=== PATIENT | female | born 1990 | race Caucasian/White ===

== ENCOUNTER 2024-01-27 20:04 | Emergency (ER) | payer BC, SELFPAY ==
[2024-01-27 20:04] VITALS: BP 130/89; PULSE 115; RESP 18; O2SAT 94
[2024-01-27 20:05] VITALS: BP 132/93; PULSE 126; RESP 22; TEMP 38.4; O2SAT 97; BMI 32.1
[2024-01-27] MEDS: Ibuprofen 600 MG Tablet PO (20:36)
[2024-01-27] MEDS: Acetaminophen 500 MG Tablet 1000 MG PO (20:36)
--- NOTE | 2024-01-27 20:39 | EX.ED.DYSGE1 ---
HPI <CARLO Ruiz - Last Filed: 01/27/24 22:11> History of Present Illness Chief Complaint: Shortness of Breath Narrative Narrative: Patient is a 33-year-old female with no significant medical history presents to the emergency department for cough, shortness of breath, fever chills and headache. Patient did have a sore throat that started 6 days ago, patient then went to the urgent care within 24 hours. Patient was placed on amoxicillin, however is not getting any improvement. Today, the patient had a severe headache, chest pain, shortness of breath as well as a cough. Pay states she did take some DayQuil however it is not helping. Patient is here for evaluation. [facility] <CARLO Ruiz - Last Filed: 01/27/24 22:11> [facility] Medical History (Updated 01/27/24 @ 22:10 by CARLO Ruiz) No active medical problems Home Medications ?Medication ?Instructions ?Recorded ?Last Taken ?Type doxycycline hyclate 100 mg capsule 100 mg PO BID #14 caps 01/27/24 Unknown Rx Allergy/AdvReac Type Severity Reaction Status Date / Time No Known Allergies Allergy Verified 01/27/24 20:07 Family History Other Cancer Surgical History No significant past surgical history Social History Smoking Status: Never smoker alcohol intake: never substance use type: does not use ROS <CARLO Ruiz - Last Filed: 01/27/24 22:11> ROS ED ROS Narrative Constitutional: Negative for weight loss. Positive fever chills, weakness Eyes: Negative for vision loss, vision change, double vision ENT: Negative for any sore throat, ear pain, congestion Cardiovascular: Negative for any chest pain, palpitations. Positive chest tightness Respiratory: Negative for any sputum production, hemoptysis, dyspnea, dyspnea on exertion, orthopnea. Positive for cough Gastrointestinal: Negative for any abdominal pain, nausea, vomiting, diarrhea, constipation, blood in stool, blood in vomit : Negative for any urinary frequency, dysuria, retention, blood in urine Muscle skeletal: Negative for any neck pain, back pain. Positive for generalized myalgias Neurological: Negative for any headache, syncope, dizziness Skin: Negative for any rashes, itching, abrasions, lacerations Psychiatric: Negative for any depression, anxiety, stress, suicidal ideation, homicidal ideation Hematologic: Negative for any excessive bruising, easy bleeding EXAM <CARLO Ruiz - Last Filed: 01/27/24 22:11> Physical Exam Narrative Exam Narrative: Vital signs reviewed. Patient is tachycardic, febrile. HEET: Head normocephalic atraumatic, TMs clear bilaterally. Posterior pharynx is clear, dry mucous membranes. Nares clear bilaterally. Neck: Supple with no lymphadenopathy or tenderness. No signs of meningismus. Cardiac: Tachycardic rate, no murmurs gallops or rubs, equal peripheral pulses bilaterally. Respiratory: Patient had some rales to the left middle lobe. No chest tenderness. Abdomen: Soft, nontender, nondistended. No abdominal bruit or pulsatile masses. No hepatosplenomegaly Extremities: No peripheral edema, no signs of gross trauma or deformity. Active full range of motion of all extremities. Neuro: Cranial nerves II through XII intact, no focal neurological deficits. Skin: Clean dry and intact with no rash, purpura, petechiae, vesicles or pustules. Backs/flank: No CVA tenderness, no midline spinal tenderness, no deformity. Psych: Normal mood and affect. No SI, HI or acute psychosis. Const Vital Signs: 01/27/24 20:04 01/27/24 20:05 01/27/24 20:31 Temperature 101.2 F H Temperature Source Oral Pulse Rate 115 H 126 H Respiratory Rate 18 22 H Respiratory Effort Short of Breath Respiratory Depth Normal Respiratory Pattern Normal Blood Pressure 130/89 H 132/93 H Blood Pressure Mean 102 106 Pulse Ox 94 97 Oxygen Delivery Method Room Air Room Air 01/27/24 21:30 01/27/24 22:18 Temperature 98.8 F 98.8 F Temperature Source Oral Pulse Rate 114 H Respiratory Rate 16 Respiratory Effort Respiratory Depth Respiratory Pattern Blood Pressure 122/87 H Blood Pressure Mean 98 Pulse Ox 95 Oxygen Delivery Method <Dr. Kobi Quevedo DO - Last Filed: 01/27/24 23:28> Physical Exam Const Vital Signs: 01/27/24 20:04 01/27/24 20:05 01/27/24 20:31 Temperature 101.2 F H Temperature Source Oral Pulse Rate 115 H 126 H Respiratory Rate 18 22 H Respiratory Effort Short of Breath Respiratory Depth Normal Respiratory Pattern Normal Blood Pressure 130/89 H 132/93 H Blood Pressure Mean 102 106 Pulse Ox 94 97 Oxygen Delivery Method Room Air Room Air 01/27/24 21:30 01/27/24 22:18 Temperature 98.8 F 98.8 F Temperature Source Oral Pulse Rate 114 H Respiratory Rate 16 Respiratory Effort Respiratory Depth Respiratory Pattern Blood Pressure 122/87 H Blood Pressure Mean 98 Pulse Ox 95 Oxygen Delivery Method [facility] <CARLO Ruiz - Last Filed: 01/27/24 22:11> [facility] Lab Data Labs: Laboratory Results - last 24 hr 01/27/24 21:37 WBC 7.5 RBC 4.31 Hgb 12.2 Hct 36.9 L MCV 85.6 MCH 28.3 MCHC 33.1 RDW Std Deviation 39.2 RDW Coeff of Kimberlee 12.5 Plt Count 240 MPV 10.6 Immature Gran % (Auto) 0.400 Neut % (Auto) 59.1 Lymph % (Auto) 28.7 Lipscomb % (Auto) 9.9 Eos % (Auto) 1.5 Baso % (Auto) 0.4 Absolute Neuts (auto) 4.4 Absolute Lymphs (auto) 2.14 Nucleated RBC % 0 Sodium 138 Potassium 3.4 L Chloride 107 Carbon Dioxide 25.0 Anion Gap 6 BUN 6 L Creatinine 0.76 Estim Creat Clear Calc 108.02 Est GFR (MDRD) Af Amer 113 Est GFR (MDRD) Non-Af 93 BUN/Creatinine Ratio 7.9 L Glucose 110 H Calcium 9.2 Radiography Diagnostic Testing: Clinical Impression(s) from Imaging Studies Chest X-Ray 01/27/24 20:42 IMPRESSION: Probable changes of viral pneumonia in the lingula and to lesser extent the right upper lobe Electronically Signed: Yony Wooten MD at 21:09 EDT , Treatment and Re-Evaluation :: Differential diagnosis includes however is not limited to: COVID-19, influenza, RSV, community-acquired pneumonia, other viral-like illness, pulmonary embolus Patient does appear uncomfortable, patient's vital signs show tachycardia, patient is febrile. Patient has not been treating her fever or headache today. Patient will receive a two-view chest x-ray, albuterol inhaler, patient will receive Tylenol 1 g as well as ibuprofen 600 mg. All radiologic examinations were read, reviewed by the emergency department attending. From these reads, a plan of care will be put in place. Patient CBC showed no leukocytosis, patient's chemistries was negative. Patient heart rate did slightly decrease, patient's temperature was 98.8. Secondary to the patient continued being tachycardic, I did give the patient 1 L normal saline. Patient did ambulate I did not drop her oxygen saturation below 97%. Chest x-ray two-view showed probable changes of viral pneumonia in the lingula and the lesser extent of the right upper lobe. Patient's COVID-19/influenza/RSV was negative. At this time, patient was improved with IV fluids. Patient be started on doxycycline, as well as given albuterol inhaler. Patient stable for discharge. Given strict return precaution. <Dr. Kobi Quevedo, DO - Last Filed: 01/27/24 23:28> [facility] History & Record Review Discussion w/independent historian: Patient and Significant other Lab Data Attestation: I reviewed the patient's lab results. Labs: Laboratory Results - last 24 hr 01/27/24 21:37 WBC 7.5 RBC 4.31 Hgb 12.2 Hct 36.9 L MCV 85.6 MCH 28.3 MCHC 33.1 RDW Std Deviation 39.2 RDW Coeff of Kimberlee 12.5 Plt Count 240 MPV 10.6 Immature Gran % (Auto) 0.400 Neut % (Auto) 59.1 Lymph % (Auto) 28.7 Lipscomb % (Auto) 9.9 Eos % (Auto) 1.5 Baso % (Auto) 0.4 Absolute Neuts (auto) 4.4 Absolute Lymphs (auto) 2.14 Nucleated RBC % 0 Sodium 138 Potassium 3.4 L Chloride 107 Carbon Dioxide 25.0 Anion Gap 6 BUN 6 L Creatinine 0.76 Estim Creat Clear Calc 108.02 Est GFR (MDRD) Af Amer 113 Est GFR (MDRD) Non-Af 93 BUN/Creatinine Ratio 7.9 L Glucose 110 H Calcium 9.2 Radiography Diagnostic Testing: Clinical Impression(s) from Imaging Studies Chest X-Ray 01/27/24 20:42 IMPRESSION: Probable changes of viral pneumonia in the lingula and to lesser extent the right upper lobe Electronically Signed: Yony Wooten MD at 21:09 EDT , Treatment and Re-Evaluation :: Differential diagnosis includes however is not limited to: COVID-19, influenza, RSV, community-acquired pneumonia, other viral-like illness, pulmonary embolus Patient does appear uncomfortable, patient's vital signs show tachycardia, patient is febrile. Patient has not been treating her fever or headache today. Patient will receive a two-view chest x-ray, albuterol inhaler, patient will receive Tylenol 1 g as well as ibuprofen 600 mg. All radiologic examinations were read, reviewed by the emergency department attending. From these reads, a plan of care will be put in place. Patient CBC showed no leukocytosis, patient's chemistries was negative. Patient heart rate did slightly decrease, patient's temperature was 98.8. Secondary to the patient continued being tachycardic, I did give the patient 1 L normal saline. Patient did ambulate I did not drop her oxygen saturation below 97%. Chest x-ray two-view showed probable changes of viral pneumonia in the lingula and the lesser extent of the right upper lobe. Patient's COVID-19/influenza/RSV was negative. At this time, patient was improved with IV fluids. Patient be started on doxycycline, as well as given albuterol inhaler. Patient stable for discharge. Given strict return precaution. I have personally performed a face to face assessment of the patient and have reviewed the SCARLETT Note. I performed a substantive portion of the visit including all aspects of the following. My ronquillo findings include: History is 33-year-old female presents to the emergency room with fever and shortness of breath. Patient has been ill over the past several days. She does couple of the other children at home have also been sick but have recovered. She was seen in urgent care was placed on some amoxicillin for possible strep throat but that came back negative. She has no significant medical problems or immunosuppression. No known lung conditions. Exam is patient is febrile tachycardic. She is not hypoxic. Patient has some rhonchi and expiratory wheeze noted on the left. She otherwise clinically appears well. Medical Decison Making white count is normal at 7.5 with normal differential. My independent interpretation the chest x-ray is left lower pneumonia. Patient was instructed albuterol MDI will be started on doxycycline. Her COVID flu and RSV swabs were negative. Discharge Plan Triage Chief Complaint: Shortness of Breath ED Midlevel Provider: [place] Peace ED Provider: Kobi Quevedo Dx/Rx/DC Orders Clinical Impression: Community acquired pneumonia Instructions: ED Pneumonia (Adult) Prescriptions: New doxycycline hyclate 100 mg capsule 100 mg PO BID Qty: 14 0RF Primary Care Provider: Jada Warner Referrals: NOT,DEFINED [Non-Staff] - Activity Restrictions/Additional Instructions: Usual albuterol inhaler as needed shortness of breath. For your fever, you may take Tylenol 1000 mg every 8 hours, you may also take ibuprofen 600 mg every 8 hours. This will control your headache, fever and chills. Take the antibiotics until finished. Print Language: Bermudian Disposition Disposition: Home, Self Care Discharge Date/Time: 01/27/24 22:28
--- NOTE | 2024-01-27 20:42 | RAD_ITS ---
STUDY: X-RAY CHEST REASON FOR EXAM: Female, 33 years old. cough TECHNIQUE: PA and lateral COMPARISON: None. FINDINGS: Reticulonodular interstitial infiltrate in the lingula which may be consistent with viral pneumonia and similar changes to a lesser extent in the right upper lobe. There is no demonstrated pleural abnormality. Normal size heart. Normal mediastinum and cheko. Normal visualized pulmonary arteries. Normal visualized aortic arch and descending thoracic aorta. Normal visualized thoracic spine. Normal visualized ribs, clavicles, and shoulders. There is no demonstrated abnormality of the visualized soft tissue structures of the upper abdomen. RAD/Chest PA and Lateral IMPRESSION: Probable changes of viral pneumonia in the lingula and to lesser extent the right upper lobe Electronically Signed: Yony Wooten MD at 21:09 EDT ,
[2024-01-27] MEDS: Albuterol Sulfate 8 gm Inhaler (60 puffs) 2 PUFF INHALATION (21:18)
[2024-01-27 21:30] VITALS: TEMP 37.1; O2SAT 96
[2024-01-27] MEDS: 0.9% Normal Saline (1000mL) 1,000 ML 999 ML IV (21:38)
[2024-01-27 21:50] LABS: Absolute Lymphocyte Count 2.14 X10^3/uL (0.83-4.51); Absolute Neutrophil Count 4.4 X10^3/uL (2.0-7.7); Basophil# 0.03 X10^3/uL; Basophil% 0.4 % (0-1); Eosinophil# 0.11 X10^3/uL; Eosinophils% 1.5 % (0-5); Hematocrit 36.9 % (37-47); Hemoglobin 12.2 g/dL (12.0-15.0); Lymphocyte # 2.14 X10^3/ul (0.83-4.51); Lymphocyte % 28.7 % (19-41); Mean Corp Hgb Conc 33.1 g/dL (32-36); Mean Corpuscular Hgb 28.3 pg (27.0-32.0); Mean Corpuscular Volume 85.6 fL (81-99); Mean Platelet Vol. 10.6 fl (6.2-12.0); Monocyte# 0.74 X10^3/uL; Monocyte% 9.9 % (0-10); NRBC Flagged by Analyzer 0 % (0-5); Neutrophil # 4.41 X10^3/uL (2.7-7.7); Neutrophil % 59.1 % (47-70); Platelet Count 240 K/mm3 (150-450); RBC Distribution Width CV 12.5 % (11.6-14.6); RBC Distribution Width SD 39.2 fl (35.1-43.9); Red Blood Count 4.31 M/mm3 (4.2-5.4); White Blood Count 7.5 K/mm3 (4.4-11.0)
[2024-01-27 22:06] LABS: Anion Gap 6 (5-15); BUN 6 mg/dL (7-18); BUN/Creat Ratio 7.9 RATIO (10-20); Calcium,Total 9.2 mg/dL (8.5-10.1); Chloride 107 mmol/L (98-107); Creatinine, Serum 0.76 mg/dL (0.55-1.02); EST Glomerular Filtration Rate 93 mL/min (>60); Est Glom Filt Rate - Afr Amer 113 mL/min (>60); Estimated Creatinine Clearance 108.02 ml/min; Glucose 110 mg/dL (74-106); Potassium 3.4 mmol/L (3.5-5.1); Sodium Level 138 mmol/L (136-145)
[2024-01-27] MEDS: Doxycycline 100 MG CAPSULE PO (22:17)
[2024-01-27 22:18] VITALS: BP 122/87; PULSE 114; RESP 16; TEMP 37.1; O2SAT 95
== END 2024-01-27 22:28 | disposition home or self-care (01) ==
PROVIDERS: Nurse Practitioner; Emergency Provider Emergency Medicine; PCP Nurse Practitioner Family; Visit Provider Emergency Medicine
DX: J18.9 Pneumonia, unspecified organism (principal)
CPT/HCPCS: 71046; 80048; 85025; 87631; 96360; 99284; J7030; A4216